=== PATIENT | female | born 1960 | race Caucasian/White ===

== ENCOUNTER 2020-01-02 12:45 | Outpatient (CLI) | payer BC, SELFPAY ==
--- NOTE | 2020-01-02 | CT_ITS ---
WS: [id number] CT ABDOMEN PELVIS TECHNIQUE: Contrast-enhanced CT of the abdomen and pelvis with coronal and sagittal reformatted image s. CLINICAL INFORMATION: ABD PAIN COMPARISON: CT March 29, 2016 DLP: 1016.[address] scans at [facility] use at least one of these dose optimization techniques: automat ed exposure control; mA and/or kV adjustment per patient size (includes targeted exams where dose is matched to clinical indication); or iterative reconstruction. FINDINGS: Diffuse fatty infiltration of the liver. Normal portal vein and splenic vein. Normal gallbladder. A f ew tiny low-attenuation lesions in the liver likely hepatic cysts unchanged since 2016. Normal gallbl adder. Normal visualized pancreas. Normal spleen. Adrenal glands are normal. Normal renal parenchymal enhancement. Right renal cyst measuring 2.1 CM. Lung bases are well aerated. Normal GE junction. Tortuous sigmoid colon with mild diffuse thickening and slight induration suspicious for mild diverti culitis. Left ovarian cyst measuring 2.6 cm increased in size since 2016 where it measured 1.6 CM. R ecommend further evaluation with pelvic ultrasound. Calcified uterine fibroids. Normal terminal ileum . Normal visualized small bowel. Disc space narrowing L5-S1. No abdominal or pelvic lymphadenopathy. No inguinal lymphadenopathy. Dens e aortic calcification with severe stenosis of the right common iliac artery origin. Dense iliac calc ification. CT/CT abdomen pelvis w con* [id number] IMPRESSION: 1. Mild diffuse fatty infiltration of the liver. Stable presumed tiny hepatic cysts. 2. Stable right renal cyst measuring 2.1 CM. No hydronephrosis. 3. Left ovarian cystic lesion measuring 2.6 cm increased in size since 2016, p reviously measuring 1.6 cm. Recommend further evaluation with ultrasound. 4. Tortuous sigmoid colon with a few diverticuli and mild diffuse narrowing an d thickening. Recommend correlation for acute diverticulitis. This could be fur ther evaluated with colonoscopy. 5. Calcified uterine fibroids. 6. Dense aortic calcification with severe stenosis of the right common iliac a rtery origin. This can be further evaluated with CTA. This is similar in appear ance but appears progressed since 2016
--- NOTE | 2020-01-02 13:20 | XR_ITS ---
WS: [id number] PROCEDURE: XR chest 2V* [id number] CLINICAL INFORMATION: COUGH COMPARISON: September 26, 2013 FINDINGS: Heart: Normal cardiac silhouette. Lungs: Moderate chronic emphysematous changes. No acute pulmonary infiltrates. No focal pneumonia. Bones: Normal visualized bony structures. XR/XR chest 2V* [id number] IMPRESSION: Moderate chronic emphysematous changes. No acute-appearing pulmonary infiltrate s.
[2020-01-02] MEDS: iohexol 300 mg/mL 50 mL Btl PO (13:55)
[2020-01-02] MEDS: iohexol 300 mg/mL 100 mL Btl IV (14:58)
== END 2020-01-02 12:46 | disposition home or self-care (01) ==
PROVIDERS: Family Provider Internal Medicine; PCP Internal Medicine; Visit Provider Internal Medicine
DX: R05 Cough (principal); R10.31 Right lower quadrant pain; R19.7 Diarrhea, unspecified; K76.0 Fatty (change of) liver, not elsewhere classified; N28.1 Cyst of kidney, acquired; N83.8 Other noninflammatory disorders of ovary, fallopian tube and broad ligament; D25.9 Leiomyoma of uterus, unspecified; I70.0 Atherosclerosis of aorta
CPT/HCPCS: 71046; 74177; Q9967

== ENCOUNTER → 2020-01-14 13:50 | Outpatient (BNVA) | payer BC, SELFPAY | PROVIDERS: Family Provider Internal Medicine; PCP Internal Medicine; Visit Provider Obstetrics & Gynecology | DX: D49.59 Neoplasm of unspecified behavior of other genitourinary organ (principal) | CPT/HCPCS: 86304 ==

== ENCOUNTER → 2020-01-19 13:57 | Outpatient (BNVA) | payer BC, SELFPAY | PROVIDERS: Family Provider Internal Medicine; PCP Internal Medicine; Visit Provider Obstetrics & Gynecology | DX: N83.202 Unspecified ovarian cyst, left side (principal); D25.9 Leiomyoma of uterus, unspecified | CPT/HCPCS: 76830 ==

== ENCOUNTER 2021-03-21 15:17 | Emergency (ER) | payer OTHER, SELFPAY ==
[2021-03-21 15:28] VITALS: BP 144/89; PULSE 118; RESP 20; TEMP 37.3; O2SAT 96
[2021-03-21 18:06] LABS: Basophils # 0.1 10^3/uL (0.0-0.1); Basophils % 0.5 %; Eosinophils # 0.1 10^3/uL (0.0-0.8); Eosinophils % 0.5 %; Hematocrit 44.9 % (37.0-47.0); Hemoglobin 14.8 g/dL (11.5-15.3); Lymphocytes # 2.2 10^3/uL (0.8-4.8); Mean Corpuscular Hemoglobin 33.6 pg (28.0-34.0); Mean Platelet Volume 9.8 fL (7.4-10.4); Monocytes # 0.7 10^3/uL (0.2-0.9); Monocytes % 5.7 %; Neutrophils # 8.63 10^3/uL (1.8-7.7); Nucleated Red Blood Cells % 0 %; Platelet Count 254 10^3/cmm (130-400); Red Cell Distribution Width 13.1 % (12.1-15.1); White Blood Count 11.7 10^3/uL (4.0-10.0)
[2021-03-21 18:27] LABS: Alanine Aminotransferase 30 U/L (0-33); Albumin Level 4.5 g/dL (3.5-5.2); Alkaline Phosphatase 209 IU/L (35-105); Anion Gap 16.2 (5-19); Aspartate Amino Transferase 40 U/L (0-32); Blood Urea Nitrogen 3 mg/dL (8-23); Calcium 8.6 mg/dL (8.5-10.5); Carbon Dioxide 24 mmol/L (22-29); Chloride 98 mmol/L (98-107); Glomerular Filtration Rate 101.6 mL/min (90-130); Glucose 139 mg/dL (65-115); Osmolality Calculated 277 mOsm/kg (285-295); Potassium 4.2 mmol/L (3.5-5.1); Sodium 134 mmol/L (136-145); Total Bilirubin 0.3 mg/dL (0.15-1.2); Total Protein 7.5 g/dL (6.6-8.7)
[2021-03-21 18:35] LABS: Acetaminophen < 5.0 ug/mL (10-30); Alcohol Level < 10 mg/dL (0-10); Salicylate < 0.3 mg/dL (3-10)
--- NOTE | 2021-03-21 22:26 | ED_ITS ---
HPI - Psych General: Chief Complaint: Psychiatric Symptoms Stated Complaint: Depression/Alcohol Abuse/Shakes Time Seen by Provider: 03/21/21 22:26 History of Present Illness: HPI Narrative: 60-year-old female comes in today for concerns of alcohol abuse. Patient's spouse and her came in due to concerns of patient's depression and anxiety. They report patient for the last year has been using alcohol to relieve her stress and anxiety due to her son on drug abuse. Patient comes in tonight wanting to stop alcohol use. Patient does have a history of a resting tremor which she takes primidone for. Patient also take Paxil for depression. Patient reports no suicidal homicidal thoughts. Patient may need is concerned about the anxiety that she has that she uses alcohol for. Review of Systems General: Reports: 10 or more systems reviewed and unremarkable except in HPI and below Psych: Reports: anxiety PFSH ED PFSH: Medical History (Updated 03/21/21 @ 22:41 by HARISH Mulligan) Asthma Depression Diverticulitis Having problems for approx 8 years. Sciatica Surgical History (Updated 01/14/20 @ 13:50 by Keon Cardona MD) No pertinent past surgical history Family History Grandfather Heart disease paternal Social History Smoking and tobacco status: current every day smoker cigarettes Packs smoked per day: 1 Years cigarettes smoked: 39 Quit status (tobacco): has tried quititng Alcohol intake: current Alcohol intake frequency: 0-2 Drinks per Day Alcohol type: wine Physical Exam Const: COMMON NORMALS: no acute distress and patient oriented x3 GENERAL APPEARANCE: cooperative HENMT: COMMON NORMALS: normocephalic and Normal external nose present HEAD & SCALP: normal to inspection and normocephalic NOSE: Normal external nose present MOUTH: Normal oral and palatal mucosa present THROAT: posterior oropharynx normal Eye: GENERAL EYE: appearance normal, both eyes and all related structures Neck/C-Spine: COMMON NORMALS: full ROM Chest: COMMONS NORMALS: normal inspection of the chest Resp: COMMON NORMALS: normal respiratory effort EFFORT & INSPECTION: Yes able to speak in complete sentences Cardio: COMMON NORMALS: regular rate and regular rhythm RATE: regular rate RHYTHM: regular rhythm GI: COMMON NORMALS: non-tender Extremity: COMMON NORMALS: normal to inspection Neuro: COMMON NORMALS: patient oriented x3 and moves all extremities Psych: COMMON NORMALS: mental status grossly normal and cooperative Skin: COMMON NORMALS: no rashes or lesions noted GENERAL SKIN EXAM: no rashes or lesions noted Course Vital Signs: Vital signs: Vital Signs Temperature 99.1 F 03/21/21 22:54 Pulse Rate 104 H 03/21/21 22:54 Respiratory Rate 17 03/21/21 22:54 Blood Pressure 150/87 03/21/21 22:54 Pulse Oximetry 97 03/21/21 22:54 MDM - Psych MDM Narrative: Medical decision making narrative: Patient comes in today for concerns of anxiety and depression along with alcohol abuse. On exam patient is alert and oriented. Patient denies any history of seizures or seizure type activity. Patient's last alcohol beverage was 1 day ago. Patient reports that she does have chronic tremors which she takes primidone for. On exam patient is alert oriented. Lungs are clear to auscultation. Skin is warm and dry. Patient is tearful at times when discussing her sons drug abuse. Patient denies any suicidal homicidal thought. Differential diagnosis includes but not limited to substance use disorder, anxiety with depression, alcohol withdrawal syndrome. I discussed with patient her concerns relate in her alcohol use and cessation of the alcohol. I will write for some lorazepam 0.5 mg 3 times a day as needed for breakthrough anxiety and alcohol withdrawal. I discussed the need for patient to only use the medication with increased anxiety and withdrawal symptoms. Patient reported understanding. I also placed a case management consult to assist patient with follow-up with behavioral health or rehab services. Patient reported understanding and agreed to plan. Lab Data: Labs: Lab Results 03/21/21 03/21/21 Range/Units 17:43 17:43 WBC 11.7 H (4.0-10.0) 10^3/ uL RBC 4.40 (4.1-5.3) 10^6/u L Hgb 14.8 (11.5-15.3) g/dL Hct 44.9 (37.0-47.0) % MCV 102.0 H (81-99) fL MCH 33.6 (28.0-34.0) pg MCHC 33.0 (30.0-36.0) g/dL RDW 13.1 (12.1-15.1) % Plt Count 254 (130-400) 10^3/c mm MPV 9.8 (7.4-10.4) fL Neut % (Auto) 74.0 % Lymph % (Auto) 19.0 % Butler % (Auto) 5.7 % Eos % (Auto) 0.5 % Baso % (Auto) 0.5 % Neut # (Auto) 8.63 H (1.8-7.7) 10^3/u L Lymph # (Auto) 2.2 (0.8-4.8) 10^3/u L Butler # (Auto) 0.7 (0.2-0.9) 10^3/u L Eos # (Auto) 0.1 (0.0-0.8) 10^3/u L Baso # (Auto) 0.1 (0.0-0.1) 10^3/u L Nucleated RBC % (a uto) 0 % Nucleated RBCs # 0.0 /100WBC Sodium 134 L (136-145) mmol/L Potassium 4.2 (3.5-5.1) mmol/L Chloride 98 (98-107) mmol/L Carbon Dioxide 24 (22-29) mmol/L Anion Gap 16.2 (5-19) BUN 3 L (8-23) mg/dL Creatinine 0.6 (0.5-0.9) mg/dL GFR Calculation 101.6 (90-130) mL/min Glucose 139 H (65-115) mg/dL Calculated Osmolal ity 277 L (285-295) mOsm/k g Calcium 8.6 (8.5-10.5) mg/dL Total Bilirubin 0.3 (0.15-1.2) mg/dL AST 40 H (0-32) U/L ALT 30 (0-33) U/L Alkaline Phosphata se 209 H (35-105) IU/L Total Protein 7.5 (6.6-8.7) g/dL Albumin 4.5 (3.5-5.2) g/dL Globulin 3.0 (1.3-4.6) g/dL Salicylates < 0.3 L (3-10) mg/dL Acetaminophen < 5.0 L (10-30) ug/mL Ethyl Alcohol < 10 (0-10) mg/dL Discharge Plan Discharge Patient Disposition: Home Clinical Impression: Anxiety with depression, Alcohol abuse with alcohol-induced anxiety disorder Condition: Stable Prescriptions: New lorazepam 0.5 mg tablet 0.5 mg PO TID PRN (Reason: alcohol withdrawal) Qty: 15 RF: 0 No Action albuterol sulfate [ProAir HFA] 90 mcg/actuation HFA aerosol inhaler 2 puff INHALATION Q6H PRNRF: 0 cholecalciferol (vitamin D3) 1,250 mcg (50,000 unit) tablet 1,250 mcg PO .weekly RF: 0 cyclobenzaprine 10 mg tablet 10 mg PO BID PRNRF: 0 paroxetine HCl 20 mg tablet 20 mg PO DAILY RF: 0 primidone 50 mg tablet 25 mg PO BID RF: 0 metronidazole [Flagyl] 500 mg tablet 500 mg PO BID RF: 0 ciprofloxacin HCl [Cipro] 500 mg tablet 500 mg PO BID RF: 0 Discharge Orders: Discharge ED (Routine); Ordered 03/21/21 Ordered By: Demetrius Wolfe Referrals: Lisa Nicole MD [Primary Care Provider] - Discharge Diet: Usual diet Discharge Activity: Increase activity as tolerated Patient Instructions: Alcohol Withdrawal (ED), Opioid Safety Activity Restrictions/Additional Instructions: Take medication only as prescribed. Follow-up with primary care as needed. Case management will contact you within the next 1 to 2 days for further assistance with follow-up with behavioral counseling or rehab services. Return to the emergency room for worsening symptoms such as seizure episodes or uncontrolled anxiety. Coding Level of Care Code ED Director Of Student Services for [employer]
[2021-03-21] MEDS: LORazepam 0.5 mg Tablet PO (22:46)
[2021-03-21 22:54] VITALS: BP 150/87; PULSE 104; RESP 17; TEMP 37.3; O2SAT 97
--- NOTE | 2021-03-22 09:48 | DCPLANNER ---
specialist managers had message to speak with patient about services at [facility]. specialist managers called phone number [phone], unable to speak with patient or leave a voicemail due to patient, due to phone number no longer being in service.
== END 2021-03-21 22:55 | disposition home or self-care (01) ==
PROVIDERS: Family Medicine; Emergency Provider Nurse Practitioner Family; PCP Internal Medicine
DX: F10.180 Alcohol abuse with alcohol-induced anxiety disorder (principal); F41.8 Other specified anxiety disorders; F17.210 Nicotine dependence, cigarettes, uncomplicated
CPT/HCPCS: 36415; 80053; 80307; 85025; 99283

== ENCOUNTER 2021-10-04 09:57 | Outpatient (CLI) | payer OTHER, SELFPAY | END 2021-10-04 09:58 | disposition home or self-care (01) | LOC: LAB 10:01 | PROVIDERS: PCP Internal Medicine; Visit Provider Nurse Practitioner | DX: R19.7 Diarrhea, unspecified (principal) | CPT/HCPCS: 87493 ==

== ENCOUNTER 2021-11-28 09:26 | Outpatient (CLI) | payer OTHER, SELFPAY ==
--- NOTE | 2021-11-28 09:35 | MM_ITS ---
WS: [id number] VIEWS: MLO and CC views both breasts. 3-D Harrison symphysis also included in the exam. Comparison made with prior exam of 08/05/2018. Findings: There was no sign of mass, architectural distortion or suspicious calcification in either breast. He terogeneously dense MM/[place] [id number] Impression: BI-RADS: 2-Benign FOLLOW-UP: 1 Year Follow-up This mammogram was also analyzed by the Computer Aided Detection System R2 Imag e [employer].
--- NOTE | 2021-11-28 09:59 | CT_ITS ---
WS: [id number] LDCT LUNG CANCER SCREENING TECHNIQUE: Noncontrast CT of the chest with coronal and sagittal reformatted images. CLINICAL INFORMATION: NICOTINE DEPENDENCE COMPARISON: None. DLP: 80.71 mGy.cm DIvol: Mean CTDIvol: 1.60 (mGy) All CT scans at [facility] use at least one of these dose optimization techniques: automat ed exposure control; mA and/or kV adjustment per patient size (includes targeted exams where dose is matched to clinical indication); or iterative reconstruction. FINDINGS: Both lungs are well aerated. No acute pulmonary infiltrates. Mild paraseptal emphysematous changes. N o suspicious pulmonary parenchymal opacities. Calcified RIGHT thyroid nodule measuring 8 mm. Aortic calcification. Coronary calcification. No media stinal or hilar lymphadenopathy. No axillary lymphadenopathy. Adrenal glands are normal. Normal GE junction. CT/CT lung screening [id number] IMPRESSION: LUNG-RADS: 1-Negative FOLLOW UP: 12 Month: Continue annual screening with LDCT
== END 2021-11-28 09:27 | disposition home or self-care (01) ==
LOC: RAD 09:29
PROVIDERS: PCP Internal Medicine; Visit Provider Internal Medicine
DX: Z12.31 Encounter for screening mammogram for malignant neoplasm of breast (principal); Z12.2 Encounter for screening for malignant neoplasm of respiratory organs; F17.210 Nicotine dependence, cigarettes, uncomplicated
CPT/HCPCS: 71271; 77063; 77067